=== PATIENT | male | born 1960 | race Caucasian/White ===

== ENCOUNTER 2017-01-09 17:45 | Emergency (ER) | payer BC ==
--- NOTE | 2017-01-09 18:01 | EDM.PDOC ---
<Daryn Brown - Last Filed: 01/09/17 18:00> ED HPI GENERAL MEDICAL PROBLEM - General Chief Complaint: Lower Extremity Injury/Pain Stated Complaint: PT HURT LT LEG Time Seen by Provider: 01/09/17 18:00 Source of Information: Reports: Patient - History of Present Illness INITIAL COMMENTS - FREE TEXT/NARRATIVE: HISTORY AND PHYSICAL: History of present illness: [] Patient complains of posterior knee pain 6/10 nonradiating denies injury or trauma No fever nausea vomiting chills sweats Left lower extremity there is a trace of edema as well as circumferential difference of left calf compared to right left is much bigger Review of systems: As per history of present illness and below otherwise all systems reviewed and negative. Past medical history: As per history of present illness and as reviewed below otherwise noncontributory. Surgical history: As per history of present illness and as reviewed below otherwise noncontributory. Social history: No reported history of drug or alcohol abuse. Family history: As per history of present illness and as reviewed below otherwise noncontributory. Physical exam: HEENT: Atraumatic, normocephalic, pupils reactive, negative for conjunctival pallor or scleral icterus, mucous membranes moist, throat clear, neck supple, nontender, trachea midline. Lungs: Clear to auscultation, breath sounds equal bilaterally, chest nontender. Heart: S1S2, regular, negative for clicks, rubs, or JVD. Abdomen: Soft, nondistended, nontender. Negative for masses or hepatosplenomegaly. Negative for costovertebral tenderness. Pelvis: Stable nontender. Genitourinary: Deferred. Rectal: Deferred. Extremities: Atraumatic, negative for cords or calf pain. Neurovascular unremarkable. Neuro: Awake, alert, oriented. Cranial nerves II through XII unremarkable. Cerebellum unremarkable. Motor and sensory unremarkable throughout. Exam nonfocal. Diagnostics: [] As below Venous Doppler rule out DVT Therapeutics: [] Impression: [] Left lower extremity pain swelling edema Definitive disposition and diagnosis as appropriate pending reevaluation and review of above. - Related Data Allergies Allergy/AdvReac Type Severity Reaction Status Date / Time diphenhydramine HCl Allergy Hives Verified 01/09/17 17:55 [From Benadryl] levofloxacin [From Levaquin] Allergy Hives Verified 01/09/17 17:55 penicillin Allergy Cannot Verified 01/09/17 17:55 Remember sulfamethoxazole Allergy Hives Verified 01/09/17 17:55 [From Bactrim] trimethoprim [From Bactrim] Allergy Hives Verified 01/09/17 17:55 Home Meds: Home Meds Lisinopril [Lisinopril] 20 mg PO DAILY 01/09/17 [History] Montelukast Sodium 10 mg PO DAILY 01/09/17 [History] Past Medical History - Past Health History Medical/Surgical History: Denies Medical/Surgical History Social & Family History - Tobacco Use Smoking Status *Q: Never Smoker Second Hand Smoke Exposure: No - Recreational Drug Use Recreational Drug Use: No Course - Vital Signs Last Recorded V/S: Last Vital Signs Temp 37.1 C 01/09/17 17:56 Pulse 69 01/09/17 17:56 Resp 16 01/09/17 17:56 BP 174/94 H 01/09/17 17:56 Pulse Ox 96 01/09/17 17:56 - Orders/Labs/Meds Orders: Active Orders 24 hr Category Date Time Status Venous Doppler Lwr Ext Lt [US] Stat Exams 01/09/17 18:00 Taken Labs: Laboratory Tests 01/09/17 01/09/17 01/09/17 Range/Units 18:10 18:10 18:10 WBC 10.97 (4.0-11.0) K/uL RBC 4.70 (4.50-5.90) M/uL Hgb 14.1 (13.0-17.0) g/dL Hct 41.3 (38.0-50.0) % MCV 87.9 (80.0-98.0) fL MCH 30.0 (27.0-32.0) pg MCHC 34.1 (31.0-37.0) g/dL RDW Std Deviation 43.6 (28.0-62.0) fl RDW Coeff of Stacy 14 (11.0-15.0) % Plt Count 241 (150-400) K/uL MPV 9.70 (7.40-12.00) fL Neut % (Auto) 63.1 (48.0-80.0) % Lymph % (Auto) 28.4 (16.0-40.0) % [place] % (Auto) 7.1 (0.0-15.0) % Eos % (Auto) 1.1 (0.0-7.0) % Baso % (Auto) 0.3 (0.0-1.5) % Neut # (Auto) 6.9 H (1.4-5.7) K/uL Lymph # (Auto) 3.1 H (0.6-2.4) K/uL [place] # (Auto) 0.8 (0.0-0.8) K/uL Eos # (Auto) 0.1 (0.0-0.7) K/uL Baso # (Auto) 0.0 (0.0-0.1) K/uL Nucleated RBC % 0.0 /100WBC Nucleated RBCs # 0 K/uL INR 1.00 (0.86-1.11) Sodium 141 (136-146) mmol/L Potassium 3.9 (3.5-5.1) mmol/L Chloride 108 (98-110) mmol/L Carbon Dioxide 23 (21-31) mmol/L BUN 14 (6.0-23.0) mg/dL Creatinine 1.0 (0.6-1.5) mg/dL Est Cr Clr Drug Dosing 76.21 mL/min Estimated GFR (MDRD) > 60.0 ml/min Glucose 101 (60-110) mg/dL Calcium 9.0 (8.8-10.8) mg/dL Total Bilirubin 0.5 (0.1-1.5) mg/dL AST 21 (5-40) IU/L ALT 36 (8-54) IU/L Alkaline Phosphatase 59 (40-150) Total Protein 7.2 (6.0-8.0) g/dL Albumin 4.7 (3.5-5.0) g/dL Globulin 2.5 (2.0-3.5) g/dL Albumin/Globulin Ratio 1.9 (1.3-2.8) Departure - Departure Disposition: Home, Self-Care 01 Clinical Impression: Leg pain - Discharge Information Forms: ED Department Discharge Additional Instructions: The following information is given to patients seen in the emergency department who are being discharged to home. This information is to outline your options for follow-up care. We provide all patients seen in our emergency department with a follow-up referral. The need for follow-up, as well as the timing and circumstances, are variable depending upon the specifics of your emergency department visit. If you don't have a primary care physician on staff, we will provide you with a referral. We always advise you to contact your personal physician following an emergency department visit to inform them of the circumstance of the visit and for follow-up with them and/or the need for any referrals to a consulting specialist. The emergency department will also refer you to a specialist when appropriate. This referral assures that you have the opportunity for followup care with a specialist. All of these measure are taken in an effort to provide you with optimal care, which includes your followup. Under all circumstances we always encourage you to contact your private physician who remains a resource for coordinating your care. When calling for followup care, please make the office aware that this follow-up is from your recent emergency room visit. If for any reason you are refused follow-up, please contact the [facility] emergency department at and asked to speak to the emergency department charge nurse. Followup primary medical doctor one to 2 days return as needed as discussed <Ronak Henderson - Last Filed: 01/09/17 20:14> ED HPI GENERAL MEDICAL PROBLEM - History of Present Illness INITIAL COMMENTS - FREE TEXT/NARRATIVE: Venous Doppler was negative for deep venous thrombosis or other significant finding Left Leg Pain Score (Numeric/FACES): 6 Review of Systems - Review of Systems Review Of Systems: ROS reveals no pertinent complaints other than HPI. Trauma Exam - Physical Exam Exam: See Below (See dictation) Departure - Departure Time of Disposition: 20:13 Condition: good
[2017-01-09 18:38] LABS: CHLORIDE,CL 108 mmol/L (98-110); SODIUM,NA 141 mmol/L (136-146)
[2017-01-09 20:23] VITALS: BP 156/76
--- NOTE | 2017-01-12 11:43 | US ---
EXAM DATE: 01/09/17 PATIENT'S AGE: 56 Patient: NIRMALA PIERSON Facility: [place], [place] Site . Site : [id number] Study: US Extremity Left [id number]/27/2017 7:50:49 PM Ordering Physician: Doctor Mobley Final Report: INDICATION: Leg and knee pain. Swelling. TECHNIQUE: A compression venous ultrasound exam was performed of the left lower extremity using mares-scale imaging, color Doppler and spectral Doppler analysis. FINDINGS: Sonographic imaging of the left lower extremity demonstrates normal compressibility and color Doppler venous blood flow within the common femoral vein, deep femoral vein, and the proximal greater saphenous vein. Within the thigh, the femoral vein is patent and compressible. At a lower level, the popliteal and posterior tibial veins also show normal compressibility and color Doppler venous blood flow. Limited imaging of the contralateral groin demonstrates a normal spectral waveform and color Doppler venous blood flow within the right common femoral vein. IMPRESSION: Normal venous ultrasound exam. No evidence of deep vein thrombosis within the left lower extremity. Dictated by Patricio Forrest MD @ Jan 09 2017 7:59PM (Electronic Signature) Report Signed by Proxy. DAWSON
== END 2017-01-09 22:28 | disposition home or self-care (01) ==
LOC: MW.ED 17:45
DX: M79.605 Pain in left leg (principal); R60.9 Edema, unspecified; Z79.899 Other long term (current) drug therapy; Z88.0 Allergy status to penicillin; Z88.1 Allergy status to other antibiotic agents
CPT/HCPCS: 36415; 80053; 85025; 85610; 93971-26-LT; 93971-LT; 99282; 99284-25

== ENCOUNTER 2017-01-27 08:55 | Day surgery (SDC) | payer BC, OTHER ==
[~2017-01-27 08:55] MED LIST: Clindamycin Phosphate in D5W 900 MG in Premix Bag 1 BAG IV SCH; Lactated Ringers 1,000 ML IV SCH; Lidocaine 1% 20 ML MDV ONE; fentaNYL 100 MCG/2 ML SDV IVPUSH PRN
[2017-01-27] MEDS ORDERED: Acetaminophen/HYDROcodone 325-5 MG Tab PO PRN (09:00)
[2017-01-27] MEDS ORDERED: fentaNYL 250 MCG/5 ML SDV ONE (10:24)
[2017-01-27] MEDS ORDERED: Midazolam 1 MG/ML 2 ML SDV ONE (10:24)
[2017-01-27] MEDS ORDERED: Ondansetron 4 MG/2 ML SDV ONE (10:24)
[2017-01-27] MEDS ORDERED: Propofol 200 MG/20 ML SDV ONE ×2 (10:24→11:04)
[2017-01-27] MEDS ORDERED: Lidocaine 2% 5 ML SDV ONE (10:24)
--- NOTE | 2017-01-27 10:43 | PCM.PREANE ---
Preanesthetic Assessment - Procedure Proposed Procedure: Left knee arthroscopy with menisectomy - Anesthesia/Transfusion/Family Hx Anesthesia History: No Prior Anesthesia Family History of Anesthesia Reaction: No Transfusion History: No Prior Transfusion(s) Intubation History: Unknown - Review of Systems General: Other (sleep apnea) Pulmonary: No Symptoms Cardiovascular: Other (HTN - treated) Gastrointestinal: No symptoms Neurological: Other (pain left knee) Other: Reports: None - Physical Assessment NPO Status Date: 01/26/17 NPO Status Time: 23:00 O2 Sat by Pulse Oximetry: 94 Respiratory Rate: 16 Vital Signs: Last Vital Signs Temp 99.5 F 01/27/17 09:53 Pulse 59 L 01/27/17 09:53 Resp 16 01/27/17 09:53 BP 176/82 H 01/27/17 09:53 Pulse Ox 94 L 01/27/17 09:53 Height: 5 ft 6 in Weight: 280 lb ASA Class: 3 Mental Status: Alert & Oriented x3 Airway Class: Mallampati = 2 Dentition: Reports: Normal Dentition Thyro-Mental Finger Breadths: 3 Mouth Opening Finger Breadths: 3 ROM/Head Extension: Full Lungs: Clear to auscultation, Normal respiratory effort Cardiovascular: Regular Rate, Regular Rhythm, No Murmurs - Allergies Allergies/Adverse Reactions: Allergies Allergy/AdvReac Type Severity Reaction Status Date / Time diphenhydramine HCl Allergy Hives Verified 01/09/17 17:55 [From Benadryl] levofloxacin [From Levaquin] Allergy Hives Verified 01/09/17 17:55 penicillin Allergy Cannot Verified 01/09/17 17:55 Remember sulfamethoxazole Allergy Hives Verified 01/09/17 17:55 [From Bactrim] trimethoprim [From Bactrim] Allergy Hives Verified 01/09/17 17:55 - Blood Blood Available: No Product(s) Available: None - Anesthesia Plan Pre-Op Medication Ordered: None - Acknowledgements Anesthesia Type Planned: General Anesthesia (LMA) Pt an Appropriate Candidate for the Planned Anesthesia: Yes Alternatives and Risks of Anesthesia Discussed w Pt/Guardian: Yes Pt/Guardian Understands and Agrees with Anesthesia Plan: Yes PreAnesthesia Questionnaire - Past Health History Medical/Surgical History: Denies Medical/Surgical History HEENT History: Reports: Allergic Rhinitis Cardiovascular History: Reports: Hypertension Respiratory History: Reports: Sleep Apnea Other Respiratory History: does not use CPAP Gastrointestinal History: Reports: None Genitourinary History: Reports: None Musculoskeletal History: Reports: Fracture Psychiatric History: Reports: None Endocrine/Metabolic History: Reports: Obesity/BMI 30+ Hematologic History: Reports: None Oncologic (Cancer) History: Reports: None Dermatologic History: Reports: None - Past Surgical History Head Surgeries/Procedures: Reports: None - SUBSTANCE USE Smoking Status *Q: Never Smoker Second Hand Smoke Exposure: No Recreational Drug Use History: No - HOME MEDS Home Medications: Home Meds Lisinopril [Lisinopril] 20 mg PO DAILY 01/09/17 [History] Montelukast Sodium 10 mg PO DAILY PRN 01/09/17 [History] - CURRENT (IN HOUSE) MEDS Current Meds: Current Medications Hydrocodone Bitart/Acetaminophen ([place] 325-5 Mg) 1 - 2 tab PO Q4H PRN PRN Reason: Pain Fentanyl (Sublimaze) 50 mcg IVPUSH Q5M PRN PRN Reason: Pain (severe 7-10) Stop: 01/28/17 08:39 Clindamycin Phosphate 900 mg/ (Premix) 50 mls @ 100 mls/hr IV ONCALL [facility] Last Admin: 01/27/17 09:43 Dose: 100 mls/hr Lactated Ringer's (Ringers, Lactated) 1,000 mls @ 100 mls/hr IV ASDIRECTED [facility] Last Admin: 01/27/17 09:20 Dose: 100 mls/hr Discontinued Medications Fentanyl (Sublimaze) Confirm Administered Dose 250 mcg .ROUTE .STK-MED ONE Stop: 01/27/17 10:25 Lidocaine (Xylocaine-Mpf 2%) Confirm Administered Dose 5 ml .ROUTE .STK-MED ONE Stop: 01/27/17 10:25 Lidocaine HCl (Xylocaine 1%) Confirm Administered Dose 20 ml .ROUTE .STK-MED ONE Stop: 01/26/17 14:59 Midazolam HCl (Versed 1 Mg/Ml) Confirm Administered Dose 2 mg .ROUTE .STK-MED ONE Stop: 01/27/17 10:25 Ondansetron HCl (Zofran) Confirm Administered Dose 4 mg .ROUTE .STK-MED ONE Stop: 01/27/17 10:25 Propofol (Diprivan 20 Ml) Confirm Administered Dose 200 mg .ROUTE .STK-MED ONE Stop: 01/27/17 10:25
--- NOTE | 2017-01-27 11:48 | PCM.OPNOTE ---
- General Post-Op/Procedure Note Date of Surgery/Procedure: 01/27/17 Operative Procedure(s): L knee arthroscopy with PMM Post-Op Diagnosis: L knee medial meniscus tear Anesthesia Technique: General ET tube Primary Surgeon: Elena De La Fuente Gas Scrubber Operator: Karen Oh in mLs: 5 Condition: Good Free Text/Narrative:: tt=12 min #[id number]
--- NOTE | 2017-01-27 12:45 | PCM.POSTAN ---
POST ANESTHESIA ASSESSMENT - VITAL SIGNS SaO2: 98 Resp Rate: 14 - RESPIRATORY Respiratory Status: respiratory rate WNL, airway patent, O2 saturation stable, supplemental oxygen Free Text/Narrative:: Required CPAP in PAR to arouse from the anesthetic in a smooth fashion. Resolved nicely and discharged to [facility].
--- NOTE | 2017-01-27 13:54 | PCM48HPAN ---
Post Anesthesia Note - EVALUATION WITHIN 48HRS OF ANESTHETIC Vital Signs in Normal Range: Yes Patient Participated in Evaluation: Yes Respiratory Function Stable: Yes Airway Patent: Yes Cardiovascular Function Stable: Yes Hydration Status Stable: Yes Pain Control Satisfactory: Yes Nausea and Vomiting Control Satisfactory: Yes Mental Status Recovered: Yes
[2017-01-27 14:08] VITALS: BP 120/49
--- NOTE | 2017-01-27 15:14 | OR ---
SURGEON: Elnea De La Fuente MD DATE OF PROCEDURE: 01/27/2017 PREOPERATIVE DIAGNOSIS: Left knee medial meniscus tear. POSTOPERATIVE DIAGNOSIS: Left knee medial meniscus tear. PROCEDURE: Left knee arthroscopy with partial medial meniscectomy. CASH MANAGEMENT OFFICER: Karen Oh PA-C ANESTHESIA: General. ESTIMATED BLOOD LOSS: 5 mL. TOURNIQUET TIME: 12 minutes. COMPLICATIONS: None. DVT PROPHYLAXIS: Not indicated. IMPLANTS USED: None. BRIEF HISTORY: Parveen is a 56-year-old male, who has had complaint of progressive left knee pain. He had failed conservative treatment. Due to his lack of response to conservative treatment, I did recommend surgical intervention. The risks and goals of procedure were discussed with the patient and were documented preoperatively. He agreed to proceed. DESCRIPTION OF PROCEDURE: The patient was properly identified and brought to the operating room. He was transferred from the OR cart and placed on the operating table in supine position. General anesthesia was administered. After adequate anesthesia was obtained, a well-padded tourniquet was applied to the left lower extremity. The left lower extremity was then prepped in standard fashion using ChloraPrep solution. It was then sterilely draped. A time-out was performed to ensure correct site and procedure. Preoperative antibiotics were given. The surgical site had been marked preoperatively. An Esmarch was used to exsanguinate the left lower extremity and the tourniquet was inflated to 250 mmHg. A lateral portal arthrotomy was established. Blunt trocar and cannula were introduced into the suprapatellar pouch. Camera, inflow, and outflow were assembled. No significant synovitis was noted. The patellofemoral joint was visualized. The patella appeared to track centrally. I then extended down the lateral and medial gutter. No loose bodies were identified. I then entered the medial compartment. A medial portal arthrotomy was established. A blunt probe was inserted. He was found to have a degenerative radial tear along the posterior horn of the medial meniscus, which was unstable. Using a combination of biters and shaver, this was resected back to a stable remnant. It was again probed and found to be stable. The joint surfaces showed evidence of diffuse grade 2 chondromalacia. I then entered the notch. Both the ACL and PCL were visualized and probed and found to be intact. I then entered the lateral compartment. The lateral compartment showed minor degenerative fraying along the central portion of the meniscus. The meniscus was probed and found to be stable. He had evidence of grade 1 chondromalacia along the lateral tibial plateau. I then re-entered the patellofemoral joint. The patella showed diffuse grade 2 to grade 3 chondromalacia. A shaver was used to perform a chondroplasty of this. The trochlear groove did not show significant degenerative findings. Instruments were then removed from the knee. The portal sites were closed with 3-0 nylon. Lidocaine 1% was injected along the portal tracts. Xeroform gauze was placed over the wound and a bulky dressing was applied. The tourniquet was then deflated. He was awakened from his anesthetic and transferred back to the operating room cart. He was brought to recovery room in stable condition. All needle and sponge counts were correct. REAGAN / GUANAKITO /[id number]
== END 2017-01-27 13:25 | disposition home or self-care (01) ==
LOC: MW.SDS 08:55
PROVIDERS: ATTEND Orthopaedic Surgery
PROC: 0SBD4ZZ Excision of Left Knee Joint, Percutaneous Endoscopic Approach (ICD-10-PCS; principal; 2017-01-27)
DX: M23.322 Other meniscus derangements, posterior horn of medial meniscus, left knee (principal); M94.262 Chondromalacia, left knee; J30.9 Allergic rhinitis, unspecified; I10 Essential (primary) hypertension; M17.12 Unilateral primary osteoarthritis, left knee; G47.30 Sleep apnea, unspecified; E66.9 Obesity, unspecified; Z88.0 Allergy status to penicillin; Z88.1 Allergy status to other antibiotic agents; Z88.2 Allergy status to sulfonamides; Z88.8 Allergy status to other drugs, medicaments and biological substances; Z79.899 Other long term (current) drug therapy; Z68.42 Body mass index [BMI] 45.0-49.9, adult
CPT/HCPCS: 29881; 93005; 94660; A9270; J2250; J2405; J3010; J7120; 01400; 88304; J2704

== ENCOUNTER 2017-11-18 20:08 | Emergency (ER) | payer BC ==
[2017-11-18 20:50] VITALS: BP 188/84
--- NOTE | 2017-11-18 21:39 | EDM.PDOC ---
ED HPI GENERAL MEDICAL PROBLEM - General Chief Complaint: Upper Extremity Injury/Pain Stated Complaint: PAIN/GLASS TUBE BROKEN INSIDE RT HAND Time Seen by Provider: 11/18/17 21:30 Source of Information: Reports: Patient History Limitations: Reports: No Limitations - History of Present Illness INITIAL COMMENTS - FREE TEXT/NARRATIVE: HISTORY AND PHYSICAL: History of present illness: [Comes to the emergency room complaining of right hand swelling and discomfort. 40 years ago he had an incident where class test tube broke in his hand. He had a piece of glass after his hand that was never removed. He has carried this around for 40 years. His last x-ray was 15 years ago. Over the past week he's noticed a gradual increase in swelling to the top of his right hand at this second and third metacarpals. Wonders if the piece of glass has moved locations over the past 15 years. Denies fever and chills. He's having no nausea or vomiting. Denies any other complaints or concerns.] Review of systems: As per history of present illness and below otherwise all systems reviewed and negative. Past medical history: As per history of present illness and as reviewed below otherwise noncontributory. Surgical history: As per history of present illness and as reviewed below otherwise noncontributory. Social history: No reported history of drug or alcohol abuse. Family history: As per history of present illness and as reviewed below otherwise noncontributory. Physical exam: HEENT: Atraumatic, normocephalic. Extremities: Atraumatic in appearance. No open wounds or lacerations. Dorsum of right hand is swollen over index and middle finger metacarpals. Mildly tender with palpation. No warmth or erythema is appreciated. cap refill less than 2 seconds. Neurovascular unremarkable. Neuro: Awake, alert, oriented. Motor and sensory unremarkable throughout. Exam nonfocal. Diagnostics: [Right hand x-ray] Impression: [foreign body dorsum of R hand] Plan: [R hand x-ray shows soft tissue foreign body anterior to R 2nd metacarpal. Pt believes that piece of glass has moved from palmar surface to dorsal surface of hand. He is given a referral to see the hand specialist, and advised to take cephalexin 500mg po TID x 10 days. Patient leaves the ER prior to being discharged or receiving Rx. ] Definitive disposition and diagnosis as appropriate pending reevaluation and review of above. - Related Data Allergies Allergy/AdvReac Type Severity Reaction Status Date / Time diphenhydramine HCl Allergy Hives Verified 11/18/17 20:52 [From Benadryl] levofloxacin [From Levaquin] Allergy Hives Verified 11/18/17 20:52 penicillin Allergy Cannot Verified 11/18/17 20:52 Remember sulfamethoxazole Allergy Hives Verified 11/18/17 20:52 [From Bactrim] trimethoprim [From Bactrim] Allergy Hives Verified 11/18/17 20:52 Home Meds: Home Meds Lisinopril 20 mg PO DAILY 01/09/17 [History] Montelukast Sodium 10 mg PO DAILY PRN 01/09/17 [History] metFORMIN [Glucophage] 500 mg PO BID 11/18/17 [History] Past Medical History - Past Health History Medical/Surgical History: Denies Medical/Surgical History HEENT History: Reports: Allergic Rhinitis Cardiovascular History: Reports: Hypertension Respiratory History: Reports: Sleep Apnea Other Respiratory History: does not use CPAP Gastrointestinal History: Reports: None Genitourinary History: Reports: None Musculoskeletal History: Reports: Fracture Psychiatric History: Reports: None Endocrine/Metabolic History: Reports: Obesity/BMI 30+ Hematologic History: Reports: None Oncologic (Cancer) History: Reports: None Dermatologic History: Reports: None - Past Surgical History Head Surgeries/Procedures: Reports: None Social & Family History - Family History Family Medical History: Noncontributory - Tobacco Use Smoking Status *Q: Never Smoker Second Hand Smoke Exposure: No - Caffeine Use Caffeine Use: Reports: Coffee - Recreational Drug Use Recreational Drug Use: No Review of Systems - Review of Systems Review Of Systems: ROS reveals no pertinent complaints other than HPI. ED EXAM, GENERAL - Physical Exam Exam: See Below Course - Vital Signs Last Recorded V/S: Last Vital Signs Temp 98.2 F 11/18/17 20:48 Pulse 90 11/18/17 20:48 Resp 20 11/18/17 20:48 BP 188/84 H 11/18/17 20:48 Pulse Ox 98 11/18/17 20:48 - Orders/Labs/Meds Orders: Active Orders 24 hr Category Date Time Status Hand Comp Min 3V Rt [CR] Stat Exams 11/18/17 20:57 Taken Departure - Departure Time of Disposition: 21:35 Disposition: Home, Self-Care 01 Condition: Good Clinical Impression: Foreign body of right hand - Discharge Information Referrals: Swetha Salazar NP [Primary Care Provider] - Forms: ED Department Discharge Additional Instructions: The following information is given to patients seen in the emergency department who are being discharged to home. This information is to outline your options for follow-up care. We provide all patients seen in our emergency department with a follow-up referral. The need for follow-up, as well as the timing and circumstances, are variable depending upon the specifics of your emergency department visit. If you don't have a primary care physician on staff, we will provide you with a referral. We always advise you to contact your personal physician following an emergency department visit to inform them of the circumstance of the visit and for follow-up with them and/or the need for any referrals to a consulting specialist. The emergency department will also refer you to a specialist when appropriate. This referral assures that you have the opportunity for follow-up care with a specialist. All of these measure are taken in an effort to provide you with optimal care, which includes your follow-up. Under all circumstances we always encourage you to contact your private physician who remains a resource for coordinating your care. When calling for follow-up care, please make the office aware that this follow-up is from your recent emergency room visit. If for any reason you are refused follow-up, please contact the [facility] emergency department at and asked to speak to the emergency department charge nurse. [facility] Specialty care- Pl[facility] Professional Building [address] [place] [address], [address] [place] [address] Follow-up with a local hand specialist at the clinic listed above. Tylenol today with ibuprofen as needed for discomfort. Take antibiotics as prescribed. Return to ER as needed as discussed.
--- NOTE | 2017-11-19 14:27 | CR ---
EXAM DATE: 11/18/17 PATIENT'S AGE: 57 Patient: NIRMALA PIERSON Facility: [place], [place] Site . Site : [id number] Study: XRay Extremity Right HAND [id number] 9:17:37 PM Ordering Physician: Doctor Mobley Final Report: INDICATION: Foreign body in hands for over 40 years, glass. Possible recent movement, increased pain and swelling. TECHNIQUE: Hand radiograph 3 views COMPARISON: None FINDINGS: Linear radiopaque density overlies mid diaphysis right 2nd metacarpal, measuring 14 millimeters in length. Foreign body is located along the anterior margin of the 2nd metacarpal on lateral view. Possible posttraumatic deformity of the right 5th metacarpal. No additional foreign body or fracture identified. No soft tissue air. IMPRESSION: 1. Soft tissue foreign body, anterior to the right 2nd metacarpal mid diaphysis. 2. Mild degree right hand soft tissue swelling, dorsal soft tissues on lateral view. No soft tissue air. Dictated by Kahlil Machado MD @ 11/18/2017 9:22:23 PM Dictated by: Kahlil Machado MD @ 11/18/2017 21:22:28 (Electronic Signature) Report Signed by Proxy. DAWSON
== END 2017-11-18 21:40 | disposition home or self-care (01) ==
LOC: MW.ED 20:08
DX: S60.551A Superficial foreign body of right hand, initial encounter (principal); I10 Essential (primary) hypertension; Z88.0 Allergy status to penicillin; Z88.1 Allergy status to other antibiotic agents; Z88.2 Allergy status to sulfonamides; Z79.899 Other long term (current) drug therapy; Z79.84 Long term (current) use of oral hypoglycemic drugs; W45.8XXA Other foreign body or object entering through skin, initial encounter
CPT/HCPCS: 73130-26-RT; 73130-RT; 99283

== ENCOUNTER 2017-11-26 08:38 | Day surgery (SDC) | payer BC ==
[~2017-11-26 08:38] MED LIST changes: +Acetaminophen/HYDROcodone 325-5 MG Tab PO PRN; +Bupivacaine 0.25%/EPINEPHrine 1:200,000 10 ML SDV INJECT ONE; +Bupivacaine 25%/EPINEPHrine/PF 30 ML ONE; +Clindamycin Phosphate in D5W 600 MG in Premix Bag 1 BAG IV ONE; -Clindamycin Phosphate in D5W 900 MG in Premix Bag 1 BAG IV SCH; -Lidocaine 1% 20 ML MDV ONE; +Lidocaine 2% 5 ML SDV ONE; +Midazolam 1 MG/ML 2 ML SDV ONE; +Ondansetron 4 MG/2 ML SDV ONE; +Propofol 200 MG/20 ML SDV ONE; -fentaNYL 100 MCG/2 ML SDV IVPUSH PRN; +fentaNYL 100 MCG/2 ML SDV ONE
--- NOTE | 2017-11-26 09:08 | PCM.PREANE ---
Preanesthetic Assessment - Anesthesia/Transfusion/Family Hx Anesthesia History: Prior Anesthesia Without Reaction Family History of Anesthesia Reaction: No Transfusion History: No Prior Transfusion(s) Intubation History: Unknown - Review of Systems General: No Symptoms Pulmonary: No Symptoms Cardiovascular: No Symptoms Gastrointestinal: No Symptoms Neurological: No Symptoms Other: Reports: None - Physical Assessment NPO Status Date: 11/25/17 Height: 1.68 m Weight: 139.253 kg ASA Class: 3 Mental Status: Alert & Oriented x3 Airway Class: Mallampati = 1 Dentition: Reports: Normal Dentition ROM/Head Extension: Full Lungs: Clear to Auscultation, Normal Respiratory Effort Cardiovascular: Regular Rate, Regular Rhythm - Lab Values: Laboratory Last Values POC Glucose 141 mg/dL (60-110) H 11/26/17 09:04 - Allergies Allergies/Adverse Reactions: Allergies Allergy/AdvReac Type Severity Reaction Status Date / Time diphenhydramine HCl Allergy Hives Verified 11/18/17 20:52 [From Benadryl] levofloxacin [From Levaquin] Allergy Hives Verified 11/18/17 20:52 penicillin Allergy Cannot Verified 11/18/17 20:52 Remember sulfamethoxazole Allergy Hives Verified 11/18/17 20:52 [From Bactrim] trimethoprim [From Bactrim] Allergy Hives Verified 11/18/17 20:52 - Anesthesia Plan Pre-Op Medication Ordered: None (PMH: morbid obesity, MONTY uses CPAP, DM2, AR, Discussed risks and need for agressive use of CPAP in the post op period) - Acknowledgements Anesthesia Type Planned: General Anesthesia, MAC Pt an Appropriate Candidate for the Planned Anesthesia: Yes Alternatives and Risks of Anesthesia Discussed w Pt/Guardian: Yes Pt/Guardian Understands and Agrees with Anesthesia Plan: Yes PreAnesthesia Questionnaire - Past Health History Medical/Surgical History: Denies Medical/Surgical History HEENT History: Reports: Other (See Below) Other HEENT History: wears glasses Cardiovascular History: Reports: Hypertension Respiratory History: Reports: Sleep Apnea Other Respiratory History: uses CPAP Gastrointestinal History: Reports: None Genitourinary History: Reports: None Musculoskeletal History: Reports: Fracture Other Musculoskeletal History: hx of fx foot, left arm and fingers (no hardware) Psychiatric History: Reports: None Endocrine/Metabolic History: Reports: Obesity/BMI 30+, Other (See Below) Other Endocrine/Metabolic History: states is borderline diabetic Hematologic History: Reports: None Oncologic (Cancer) History: Reports: None Dermatologic History: Reports: None - Past Surgical History Musculoskeletal Surgical History: Reports: Arthroscopic Knee - SUBSTANCE USE Smoking Status *Q: Never Smoker Second Hand Smoke Exposure: No Recreational Drug Use History: No - HOME MEDS Home Medications: Home Meds Lisinopril 20 mg PO DAILY 01/09/17 [History] Montelukast Sodium 10 mg PO DAILY PRN 01/09/17 [History] metFORMIN [Glucophage] 500 mg PO BID 11/18/17 [History] Cephalexin 500 mg PO QID 11/23/17 [History] Nebivolol HCl [Bystolic] 10 mg PO DAILY 11/23/17 [History] - CURRENT (IN HOUSE) MEDS Current Meds: Current Medications Hydrocodone Bitart/Acetaminophen ([place] 325-5 Mg) 1 tab PO Q4H PRN PRN Reason: Pain Lactated Ringer's (Ringers, Lactated) 1,000 mls @ 125 mls/hr IV ASDIRECTED DEDE Discontinued Medications Bupivacaine HCl/Epinephrine Bitart (Marcaine 0.25%/Epinephrine 1:200,000) 10 ml INJECT ONETIME ONE Stop: 11/26/17 08:01 Fentanyl (Sublimaze) Confirm Administered Dose 100 mcg .ROUTE .STK-MED ONE Stop: 11/26/17 07:02 Clindamycin Phosphate 600 mg/ (Premix) 50 mls @ 150 mls/hr IV ONETIME ONE Stop: 11/26/17 08:19 Bupivacaine HCl/Epinephrine Bitart (Sensorc Mpf 0.25%-Epi 1:257337) Confirm Administered Dose 30 mls @ as directed .ROUTE .STK-MED ONE Stop: 11/26/17 07:33 Lidocaine (Xylocaine-Mpf 2%) Confirm Administered Dose 5 ml .ROUTE .STK-MED ONE Stop: 11/26/17 07:01 Midazolam HCl (Versed 1 Mg/Ml) Confirm Administered Dose 2 mg .ROUTE .STK-MED ONE Stop: 11/26/17 07:02 Ondansetron HCl (Zofran) Confirm Administered Dose 4 mg .ROUTE .STK-MED ONE Stop: 11/26/17 07:01 Propofol (Diprivan 20 Ml) Confirm Administered Dose 200 mg .ROUTE .STK-MED ONE Stop: 11/26/17 07:02
--- NOTE | 2017-11-26 09:09 | PCM.PREANE ---
Preanesthetic Assessment - Anesthesia/Transfusion/Family Hx Anesthesia History: Prior Anesthesia Without Reaction Transfusion History: No Prior Transfusion(s) Intubation History: Unknown - Physical Assessment Height: 1.68 m Weight: 139.253 kg - Allergies Allergies/Adverse Reactions: Allergies Allergy/AdvReac Type Severity Reaction Status Date / Time diphenhydramine HCl Allergy Hives Verified 11/18/17 20:52 [From Benadryl] levofloxacin [From Levaquin] Allergy Hives Verified 11/18/17 20:52 penicillin Allergy Cannot Verified 11/18/17 20:52 Remember sulfamethoxazole Allergy Hives Verified 11/18/17 20:52 [From Bactrim] trimethoprim [From Bactrim] Allergy Hives Verified 11/18/17 20:52 PreAnesthesia Questionnaire - Past Health History Medical/Surgical History: Denies Medical/Surgical History HEENT History: Reports: Other (See Below) Other HEENT History: wears glasses Cardiovascular History: Reports: Hypertension Respiratory History: Reports: Sleep Apnea Other Respiratory History: uses CPAP Gastrointestinal History: Reports: None Genitourinary History: Reports: None Musculoskeletal History: Reports: Fracture Other Musculoskeletal History: hx of fx foot, left arm and fingers (no hardware) Psychiatric History: Reports: None Endocrine/Metabolic History: Reports: Obesity/BMI 30+, Other (See Below) Other Endocrine/Metabolic History: states is borderline diabetic Hematologic History: Reports: None Oncologic (Cancer) History: Reports: None Dermatologic History: Reports: None - Past Surgical History Musculoskeletal Surgical History: Reports: Arthroscopic Knee - SUBSTANCE USE Smoking Status *Q: Never Smoker Second Hand Smoke Exposure: No Recreational Drug Use History: No - HOME MEDS Home Medications: Home Meds Lisinopril 20 mg PO DAILY 01/09/17 [History] Montelukast Sodium 10 mg PO DAILY PRN 01/09/17 [History] metFORMIN [Glucophage] 500 mg PO BID 11/18/17 [History] Cephalexin 500 mg PO QID 11/23/17 [History] Nebivolol HCl [Bystolic] 10 mg PO DAILY 11/23/17 [History] - CURRENT (IN HOUSE) MEDS Current Meds: Current Medications Hydrocodone Bitart/Acetaminophen ([place] 325-5 Mg) 1 tab PO Q4H PRN PRN Reason: Pain Lactated Ringer's (Ringers, Lactated) 1,000 mls @ 125 mls/hr IV ASDIRECTED DEDE Discontinued Medications Bupivacaine HCl/Epinephrine Bitart (Marcaine 0.25%/Epinephrine 1:200,000) 10 ml INJECT ONETIME ONE Stop: 11/26/17 08:01 Fentanyl (Sublimaze) Confirm Administered Dose 100 mcg .ROUTE .STK-MED ONE Stop: 11/26/17 07:02 Clindamycin Phosphate 600 mg/ (Premix) 50 mls @ 150 mls/hr IV ONETIME ONE Stop: 11/26/17 08:19 Bupivacaine HCl/Epinephrine Bitart (Sensorc Mpf 0.25%-Epi 1:[id number]) Confirm Administered Dose 30 mls @ as directed .ROUTE .STK-MED ONE Stop: 11/26/17 07:33 Lidocaine (Xylocaine-Mpf 2%) Confirm Administered Dose 5 ml .ROUTE .STK-MED ONE Stop: 11/26/17 07:01 Midazolam HCl (Versed 1 Mg/Ml) Confirm Administered Dose 2 mg .ROUTE .STK-MED ONE Stop: 11/26/17 07:02 Ondansetron HCl (Zofran) Confirm Administered Dose 4 mg .ROUTE .STK-MED ONE Stop: 11/26/17 07:01 Propofol (Diprivan 20 Ml) Confirm Administered Dose 200 mg .ROUTE .STK-MED ONE Stop: 11/26/17 07:02
[2017-11-26] MEDS ORDERED: Glycopyrrolate 0.2 MG/ML SDV ONE (09:35)
[2017-11-26] MEDS ORDERED: ePHEDrine 50 MG/ML SDV ONE (09:44)
--- NOTE | 2017-11-26 11:12 | PCM.POSTAN ---
POST ANESTHESIA ASSESSMENT - MENTAL STATUS Mental Status: Alert, Oriented - VITAL SIGNS Pulse Rate: 60 SaO2: 96 (2LPM) Resp Rate: 16 - RESPIRATORY Respiratory Status: Respiratory Rate WNL, Airway Patent, O2 Saturation Stable - CARDIOVASCULAR CV Status: Pulse Rate WNL, Blood Pressure Stable - GASTROINTESTINAL GI Status: No Symptoms - PAIN Pain Score: 1 - POST OP HYDRATION Hydration Status: Adequate & Stable - OBSERVATIONS Free Text/Narrative:: Pt maintaining SpO2 >92% off of BiPAP while awake at this time. Will continue to monitor during Phase II.
--- NOTE | 2017-11-26 11:22 | PCM48HPAN ---
Post Anesthesia Note - EVALUATION WITHIN 48HRS OF ANESTHETIC Vital Signs in Normal Range: Yes Patient Participated in Evaluation: Yes Respiratory Function Stable: Yes Airway Patent: Yes Cardiovascular Function Stable: Yes Hydration Status Stable: Yes Pain Control Satisfactory: Yes Nausea and Vomiting Control Satisfactory: Yes Mental Status Recovered: Yes Pulse Rate: 60 Resp Rate: 16
--- NOTE | 2017-11-26 11:22 | PCM.POSTAN ---
POST ANESTHESIA ASSESSMENT - MENTAL STATUS Mental Status: Alert, Oriented - RESPIRATORY Respiratory Status: Respiratory Rate WNL, Airway Patent, O2 Saturation Stable - CARDIOVASCULAR CV Status: Pulse Rate WNL, Blood Pressure Stable - GASTROINTESTINAL GI Status: No Symptoms - POST OP HYDRATION Hydration Status: Adequate & Stable
[2017-11-26 12:11] VITALS: BP 125/61
--- NOTE | 2017-11-26 15:46 | PCM.OPNOTE ---
- General Post-Op/Procedure Note Date of Surgery/Procedure: 11/26/17 Operative Procedure(s): removal foreign body right hand - deep on bone and intramuscular Pre Op Diagnosis: foreign body right hand Post-Op Diagnosis: Same Anesthesia Technique: General LMA, Local Primary Surgeon: Elise Tijerina Complications: None Condition: Good Free Text/Narrative:: Intake & Output 11/25/17 11/26/17 11/26/17 23:59 07:59 15:59 Intake Total 1620 Balance 1620
--- NOTE | 2017-11-30 10:21 | CR ---
EXAMINATION: Right hand HISTORY: foreign body COMPARISON: 11/18/2017 TECHNIQUE: 3 views FINDINGS/IMPRESSION: There is a tubular shaped opacity projecting over the second metacarpal. Old fra cture deformity of the fifth metacarpal noted.
--- NOTE | 2017-11-30 12:49 | OR ---
SURGEON: ASH CUNHA MD DATE OF PROCEDURE: 11/26/2017 PREOPERATIVE DIAGNOSIS: Foreign body in right hand. POSTOPERATIVE DIAGNOSIS: Foreign body in right hand. PROCEDURE PERFORMED: Removal of foreign body in right hand with deep on the bone and intramuscular with the assistance of fluoroscopy. ANESTHESIA: General LMA with local. INDICATIONS: Mr. Saenz is a 57-year-old gentleman with foreign body in his hand from back in the 70s. It is a piece of glass from shop. Unfortunately, he recently had inflammation and swelling associated with the hand and thinks that is due to the underlying foreign object. We discussed that it is likely serendipitous. However, given the irritation now, he would like it removed. Risks were including, but not limited to, bleeding, infection, damage to underlying or overlying structures, possible need for future interventions and possible scarring. PROCEDURE IN DETAIL: After informed consent was obtained and placed on the chart, the patient was brought to the operating theater and laid in the supine position. After adequate general LMA anesthesia was obtained, the area was prepped and draped and a time-out was completed to confirm side and site. The arm was then exsanguinated and the tourniquet was insufflated to 200 mmHg. Fluoroscopy was then used to localize the area and a small incision was made over top of this. Given the deep nature, the incision was extended and care was taken to protect the neurovascular bundles. The location of the glass was confirmed with fluoroscopy and somewhat difficult, was circumferentially dissected free of the underlying bone and muscle and surrounding scar tissue. It is not mobile and is soft and significantly with scar tissue. Once adequately exposed and removed in pieces, fluoroscopy was used to confirm complete excision and removal. Once removed, the area was copiously irrigated. The tourniquet was desufflated and the skin was closed using a 5-0 nylon stitch in a horizontal mattress fashion. The patient tolerated this well. All counts and needles were correct at the end of the case. FOLLOWUP INSTRUCTIONS: The patient was given a prescription for pain control and photos documenting removal. We discussed range of motion and continued elevation. He will call sooner if any issues or concerns. Post discharge instructions provided. HOMA / GUANAKITO /[id number]
== END 2017-11-26 12:00 | disposition home or self-care (01) ==
LOC: MW.SDS 08:38
PROVIDERS: ATTEND Plastic Surgery
DX: S60.551A Superficial foreign body of right hand, initial encounter (principal); I10 Essential (primary) hypertension; G47.30 Sleep apnea, unspecified; Z88.1 Allergy status to other antibiotic agents; Z88.2 Allergy status to sulfonamides; Z88.8 Allergy status to other drugs, medicaments and biological substances; Z79.899 Other long term (current) drug therapy
CPT/HCPCS: 20525; 76000; 82962; 88300; 94660; J2250; J2405; J3010; J7120; J2704